=== PATIENT | male | born 1940 | race Caucasian/White ===

== ENCOUNTER 2017-10-18 11:36 | Inpatient (IN) | payer MEDICARE ==
[~2017-10-18] VITALS: Ht 175.3 cm; Wt 93.0 kg
[2017-10-18] MEDS ORDERED: HUMALOG100 UNIT/1 SC (12:08)
[2017-10-18] MEDS ORDERED: ATORVASTATIN CA10 MG PO (12:08)
[2017-10-18] MEDS ORDERED: METOPROLOL TART25 MG PO (12:08)
[2017-10-18] MEDS ORDERED: FAMOTIDINE20 MG PO (12:08)
[2017-10-18] MEDS ORDERED: DOXAZOSIN MESYLA2 MG PO (12:08)
[2017-10-18] MEDS ORDERED: ZOLOFT50 MG PO (12:08)
[2017-10-18] MEDS ORDERED: ASPIR 8181 MG PO (12:08)
[2017-10-18] MEDS: SODIUM CHLORIDE 0.9% 1000ML 1,000 ML IV SCH ×4 (12:29→23:32)
[2017-10-18] MEDS ORDERED: CEFTRIAXONE SOD 1 GM VIAL IM ONE (14:15)
[2017-10-18] MEDS ORDERED: ONDANSETRON HCL INJ 2 MG/ML VIAL IV STA (14:22)
[2017-10-18] MEDS ORDERED: ONDANSETRON HCL INJ 2 MG/ML VIAL IV PRN (15:45)
[2017-10-18] MEDS ORDERED: ASPIRIN 81 MG CHEW TAB PO ONE (15:45)
[2017-10-18 19:00] VITALS: BP 136/76
[2017-10-18 20:00] VITALS: BP 136/76
[2017-10-19] VITALS (9 sets, daily range): BP systolic 108–144; BP diastolic 58–72
[2017-10-19] MEDS ORDERED: PANTOPRAZOLE 40 MG 10ML VIAL IV STA (01:37)
[2017-10-19] MEDS: PANTOPRAZOLE INJ 40 MG in SODIUM CHLORIDE 0.9% 50ML 50 ML IV SCH ×2 (02:26→20:17)
[2017-10-19 04:38] LABS: ALBUMIN 2.8 g/dL (3.5-5.0); ANION GAP 14.2 mmol/L (8-16); CALCIUM 8.4 mg/dL (8.4-10.2); CREATININE, SERUM 1.57 mg/dL (0.72-1.25); POTASSIUM 4.2 mmol/L (3.5-5.1)
[2017-10-19 04:45] LABS: BASOPHILS % 0.3 % (0.0-1.0); EOSINOPHILS # (AUTO) 0.1 (0.0-0.4); EOSINOPHILS % 0.8 % (0.0-6.0); HEMATOCRIT 23.7 % (38.2-49.6); LYMPHOCYTES # (AUTO) 1.9 (1.0-3.2); LYMPHOCYTES % 17.4 % (18.0-39.1); MEAN CORPUSCULAR HEMOGLOBIN 28.9 pg (28-32); MEAN CORPUSCULAR HGB CONC 33.8 g/dL (31-35); MEAN CORPUSCULAR VOLUME 85.6 fL (81-99); MONOCYTES # (AUTO) 0.8 (0.2-0.8); MONOCYTES % 7.8 % (4.4-11.3); NEUTROPHILS # (AUTO) 7.8 (2.1-6.9); NEUTROPHILS % 73.1 % (38.7-80.0); PLATELET COUNT 187 x10e3/uL (140-360); RED BLOOD COUNT 2.77 x10e6/uL (4.3-5.7); RED CELL DISTRIBUTION WIDTH 14.2 % (11.7-14.4)
[2017-10-19] MEDS: SODIUM CHLORIDE 0.9% 1000ML 1,000 ML IV SCH ×4 (08:15→18:11)
[2017-10-19 08:20] LABS: INR 1.25; PROTHROMBIN TIME 14.8 seconds (11.9-14.5)
[2017-10-19 08:21] LABS: PARTIAL THROMBOPLASTIN TIME 33.7 seconds (23.8-35.5)
[2017-10-19] MEDS ORDERED: PROPOFOL IV EMULSION 10 MG/ML 50 ML VIAL ONE (14:56)
[2017-10-19] MEDS ORDERED: LIDOCAINE HCL 2% LOCAL INJ 5 ML SDV VIAL INJ ONE (14:56)
[2017-10-19] MEDS ORDERED: MIDAZOLAM HCL 2 MG/2 ML VIAL ONE (15:21)
[2017-10-19] MEDS ORDERED: FENTANYL CITRATE/PF 100MCG/2 ML INJ ONE (15:21)
[2017-10-19] MEDS ORDERED: SODIUM CHLORIDE 0.9% 500ML 500 ML ONE (15:35)
[2017-10-19] MEDS: INSULIN LISPRO 100 UNIT/1 ML 3ML VIAL SQ SCH (20:00)
--- NOTE | 2017-10-19 22:31 | Operative Report ---
DATE OF PROCEDURE: October 19, 2017 REFERRING PHYSICIAN: Dr. Antunez MEDICATION: Patient was done under MAC. Please see anesthesiologist's note. PROCEDURE: Patient in left lateral decubitus position. Flexible fiberoptic Olympus gastroscope was introduced into the esophagus under direct visualization without any difficulty. The distal esophageal mucosa was ulcerated. The tight ulcerated stricture noted at the GE junction could not initially traverse with scope, dilated to a size 46-[place]. The scope was then advanced with some resistance into the stomach. Mucosa overlying the antrum and the body revealed some patchy erythema, low-grade edema. Biopsies were obtained, sent to stain for H. pylori. The pylorus was of normal contour and shape. It was intubated with ease and the scope was advanced all the way to 2nd portion of the duodenum. The scope was then withdrawn slowly. Mucosa overlying the proximal 2nd portion and the duodenal bulb appeared to be within normal limits. The scope was then withdrawn back into the stomach and retroflexed. Mucosa overlying the fundus and the cardia grossly appeared to be within normal limits. The scope was then straightened out. The stomach was decompressed. Scope was subsequently withdrawn. Patient tolerated the procedure well. IMPRESSIONS 1. Ulcerated distal esophagus. 2. 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 3. Gastritis biopsied. Biopsies sent to stain for Helicobacter pylori. PLAN: Follow up histology. Continue PPI therapy. Initiate full liquid diet. Patient will need to have additional dilatation of the aforementioned esophageal stricture, which could be done electively on an outpatient basis. Job#: [id number] CQ cc:NEIL ANTUNEZ MD
[2017-10-20] VITALS (8 sets, daily range): BP systolic 108–129; BP diastolic 55–65
[2017-10-20] MEDS: PANTOPRAZOLE INJ 40 MG in SODIUM CHLORIDE 0.9% 50ML 50 ML IV SCH ×3 (01:02→22:31)
[2017-10-20] MEDS: SODIUM CHLORIDE 0.9% 1000ML 1,000 ML IV SCH ×2 (04:15→08:45)
[2017-10-20 05:50] LABS: BASOPHILS % 0.3 % (0.0-1.0); EOSINOPHILS # (AUTO) 0.3 (0.0-0.4); EOSINOPHILS % 4.1 % (0.0-6.0); HEMATOCRIT 20.1 % (38.2-49.6); LYMPHOCYTES # (AUTO) 1.2 (1.0-3.2); LYMPHOCYTES % 18.1 % (18.0-39.1); MEAN CORPUSCULAR HEMOGLOBIN 28.7 pg (28-32); MEAN CORPUSCULAR HGB CONC 32.8 g/dL (31-35); MEAN CORPUSCULAR VOLUME 87.4 fL (81-99); MONOCYTES # (AUTO) 0.5 (0.2-0.8); MONOCYTES % 7.7 % (4.4-11.3); NEUTROPHILS # (AUTO) 4.5 (2.1-6.9); NEUTROPHILS % 69.3 % (38.7-80.0); PLATELET COUNT 156 x10e3/uL (140-360); RED CELL DISTRIBUTION WIDTH 14.9 % (11.7-14.4)
[2017-10-20 05:52] LABS: HEMOGLOBIN 6.6 g/dL (14.0-18.0)
[2017-10-20 05:56] LABS: ANION GAP 12.6 mmol/L (8-16); CALCIUM 8.1 mg/dL (8.4-10.2); CREATININE, SERUM 1.26 mg/dL (0.72-1.25); POTASSIUM 3.6 mmol/L (3.5-5.1)
[2017-10-20] MEDS: INSULIN LISPRO 100 UNIT/1 ML 3ML VIAL SQ SCH ×3 (08:00→21:00)
[2017-10-20] MEDS: ASPIRIN 81 MG CHEW TAB PO SCH (08:42)
[2017-10-20] MEDS: DOXAZOSIN MESYLATE 2 MG TAB PO SCH (08:43)
[2017-10-20] MEDS: METOPROLOL TARTRATE 25 MG TAB PO SCH (08:44)
[2017-10-20] MEDS: ATORVASTATIN 10 MG TAB PO SCH (08:44)
[2017-10-20] MEDS: SERTRALINE HCL 50 MG TAB PO SCH (08:45)
[2017-10-20] MEDS: FAMOTIDINE 20 MG TAB PO SCH ×2 (08:45→16:00)
[2017-10-20] MEDS ORDERED: SODIUM CHLORIDE 0.9% 250ML 250 ML IV NR (09:30)
[2017-10-20] MEDS ORDERED: DEXTROSE 50% SYRINGE 50 ML IV PRN (13:45)
[2017-10-20] MEDS: FUROSEMIDE INJ 10 MG/ML 2 ML VIAL IV SCH ×2 (14:21→17:24)
[2017-10-20 19:36] LABS: BASOPHILS % 0.4 % (0.0-1.0); EOSINOPHILS # (AUTO) 0.3 (0.0-0.4); EOSINOPHILS % 3.8 % (0.0-6.0); HEMATOCRIT 24.6 % (38.2-49.6); HEMOGLOBIN 8.3 g/dL (14.0-18.0); LYMPHOCYTES # (AUTO) 1.5 (1.0-3.2); LYMPHOCYTES % 21.8 % (18.0-39.1); MEAN CORPUSCULAR HEMOGLOBIN 28.9 pg (28-32); MEAN CORPUSCULAR HGB CONC 33.7 g/dL (31-35); MEAN CORPUSCULAR VOLUME 85.7 fL (81-99); MONOCYTES # (AUTO) 0.6 (0.2-0.8); NEUTROPHILS # (AUTO) 4.5 (2.1-6.9); NEUTROPHILS % 65.4 % (38.7-80.0); PLATELET COUNT 152 x10e3/uL (140-360); RED BLOOD COUNT 2.87 x10e6/uL (4.3-5.7); RED CELL DISTRIBUTION WIDTH 14.3 % (11.7-14.4)
[2017-10-21 00:02] VITALS: BP 113/56
[2017-10-21] MEDS: PANTOPRAZOLE INJ 40 MG in SODIUM CHLORIDE 0.9% 50ML 50 ML IV SCH (03:44)
[2017-10-21 04:58] VITALS: BP 132/64
[2017-10-21 07:42] VITALS: BP 144/67
[2017-10-21 09:30] VITALS: BP 144/67
[2017-10-21] MEDS: ASPIRIN 81 MG CHEW TAB PO SCH (09:30)
[2017-10-21] MEDS: DOXAZOSIN MESYLATE 2 MG TAB PO SCH (09:30)
[2017-10-21] MEDS: INSULIN LISPRO 100 UNIT/1 ML 3ML VIAL SQ SCH ×3 (09:30→16:30)
[2017-10-21] MEDS: FAMOTIDINE 20 MG TAB PO SCH ×2 (09:30→16:30)
[2017-10-21] MEDS: SERTRALINE HCL 50 MG TAB PO SCH (09:30)
[2017-10-21] MEDS: METOPROLOL TARTRATE 25 MG TAB PO SCH (09:30)
[2017-10-21] MEDS: ATORVASTATIN 10 MG TAB PO SCH (09:30)
[2017-10-21 12:44] VITALS: BP 123/61
--- NOTE | 2017-10-21 17:18 | Discharge Summary ---
HISTORY OF PRESENT ILLNESS: [id number] male with past medical history positive for coronary artery disease, hypertension, diabetes mellitus, history of alcohol abuse who came here because of feeling weak. He was found to have melanotic stools, very low hemoglobin. He underwent an upper endoscopy done by Dr. Tim Marin who found an ulcerated distal esophagus and ulcerated tight stricture in the gastroesophageal junction, which was dilated, gastritis. Patient is doing much, much better now. Patient is going home today. PHYSICAL EXAM: VITAL SIGNS: Blood pressure 123/61, temperature 96.1, heart rate 57 per minute, respiratory rate 18 per minute, oxygen saturation 99%. HEART: Regular rhythm. No murmur. No extra sounds. LUNGS: Clear bilaterally. ABDOMEN: Soft. EXTREMITIES: Show no evidence of cyanosis, edema or trauma. On the BMP sodium 141, potassium 3.6, chloride 113. CO2 19, BUN 41, creatinine 1.26, glucose 135. On the CBC, white blood count 6.49, hemoglobin 8.3 hematocrit 24.6, platelet 152,000. PT 14.8. INR 1.25, PTT 33.7, AST 9, ALT 9, total bilirubin 0.5, alkaline phosphatase 56. FINAL IMPRESSION: 1. Gastric bleed secondary to ulcerated distal esophagus. 2. Gastritis. 3. Acute anemia secondary to upper gastrointestinal bleeding. 4. Acute renal insufficiency. 5. 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 6. Hypertension. 7. Coronary artery disease status post coronary artery bypass graft. 8. Hyperlipidemia. 9. Depression. PLAN OF TREATMENT: Continue Protonix 40 mg twice a day. We are going to discontinue the aspirin and hold it for at least a couple of months. Continue metoprolol 25 mg daily. Continue Lipitor 10 mg daily. Zoloft 100 mg daily. 4 mg daily. Follow up with me in a week and follow up with Dr. Tim Marin, director of agronomy, in two weeks NEIL MATIAS MD Job#: [id number]
== END 2017-10-21 17:00 | disposition home or self-care (01) | DRG 381 ==
LOC: FSED 11:36 → ERHOLD 15:32 → MED/SURG 19:00
PROVIDERS: ADMIT Internal Medicine; ATTEND Internal Medicine
PROC: 0DB78ZX Excision of Stomach, Pylorus, Via Natural or Artificial Opening Endoscopic, Diagnostic (ICD-10-PCS; 2017-10-19)
PROC: 0D758ZZ Dilation of Esophagus, Via Natural or Artificial Opening Endoscopic (ICD-10-PCS; principal; 2017-10-19 16:34)
PROC: 0DB68ZX Excision of Stomach, Via Natural or Artificial Opening Endoscopic, Diagnostic (ICD-10-PCS; 2017-10-19 16:34)
PROC: 30233N1 Transfusion of Nonautologous Red Blood Cells into Peripheral Vein, Percutaneous Approach (ICD-10-PCS; 2017-10-20)
DX: K22.11 Ulcer of esophagus with bleeding (principal); D62 Acute posthemorrhagic anemia; K22.2 Esophageal obstruction; I25.10 Atherosclerotic heart disease of native coronary artery without angina pectoris; Z95.1 Presence of aortocoronary bypass graft; F10.11 Alcohol abuse, in remission; F32.9 Major depressive disorder, single episode, unspecified; E78.5 Hyperlipidemia, unspecified; N28.9 Disorder of kidney and ureter, unspecified; E11.22 Type 2 diabetes mellitus with diabetic chronic kidney disease; I12.9 Hypertensive chronic kidney disease with stage 1 through stage 4 chronic kidney disease, or unspecified chronic kidney disease; N18.9 Chronic kidney disease, unspecified; Z79.4 Long term (current) use of insulin; K29.70 Gastritis, unspecified, without bleeding
CPT/HCPCS: 36415; 43239; 43450; 80048; 80053; 80307; 81003; 82550; 82553; 82948; 84484; 85025; 85610; 85730; 86850; 86900; 86920; 88305; 88312; 93005; 96372; 96374; 99284; J0696; J1940; J2001; J2250; J2405; J7030; J7040; J7050; P9016

== ENCOUNTER → 2018-01-01 | Day surgery (SDC) | payer MEDICARE, OTHER ==
[2017-12-30 12:30] LABS: BASOPHILS # (AUTO) 0.1 (0.0-0.1); BASOPHILS % 0.7 % (0.0-1.0); EOSINOPHILS # (AUTO) 0.3 (0.0-0.4); EOSINOPHILS % 3.3 % (0.0-6.0); HEMATOCRIT 35.1 % (38.2-49.6); HEMOGLOBIN 10.6 g/dL (14.0-18.0); LYMPHOCYTES # (AUTO) 2.5 (1.0-3.2); LYMPHOCYTES % 25.9 % (18.0-39.1); MEAN CORPUSCULAR HEMOGLOBIN 23.3 pg (28-32); MEAN CORPUSCULAR HGB CONC 30.2 g/dL (31-35); MEAN CORPUSCULAR VOLUME 77.1 fL (81-99); MONOCYTES # (AUTO) 0.9 (0.2-0.8); MONOCYTES % 9.4 % (4.4-11.3); NEUTROPHILS # (AUTO) 5.9 (2.1-6.9); NEUTROPHILS % 60.4 % (38.7-80.0); PLATELET COUNT 345 x10e3/uL (140-360); RED BLOOD COUNT 4.55 x10e6/uL (4.3-5.7); RED CELL DISTRIBUTION WIDTH 16.6 % (11.7-14.4)
[~2018-01-01] MED LIST: ASPIR 8181 MG PO; ATORVASTATIN CA10 MG PO; DOXAZOSIN MESYLA2 MG PO; EPHEDRINE SULFATE INJ 50 MG/10 ML SYR ONE; ESMOLOL HCL 100MG/10ML 10 MG/ML VIAL ONE; FAMOTIDINE20 MG PO; FENTANYL CITRATE/PF 100MCG/2 ML INJ ONE; HUMALOG100 UNIT/1; HUMALOG100 UNIT/1 SC; METOPROLOL TART25 MG PO; PANTOPRAZOLE SO20 MG PO; PANTOPRAZOLE SO40 MG PO; PHENYLEPHRINE HCL 1% 10 MG/ML VIAL ONE; PROPOFOL IV EMULSION 10 MG/ML 50 ML VIAL ONE; SERTRALINE; ZOLOFT50 MG PO
[2018-01-01 16:00] VITALS: BP 127/94
--- NOTE | 2018-01-01 16:23 | Operative Report ---
DATE OF PROCEDURE: January 01, 2018 REFERRING PHYSICIAN: Dr. Neil Matias. PROCEDURES PERFORMED: Esophagogastroduodenoscopy with esophageal dilatation and biopsies and colonoscopy with polypectomy. INDICATIONS FOR ESOPHAGOGASTRODUODENOSCOPY: Dysphagia to solids. INDICATIONS FOR COLONOSCOPY: Colorectal cancer screening. MEDICATION: Patient was done under MAC. Please see anesthesiologist's note. PROCEDURE: With the patient in the left lateral decubitus position, flexible fiberoptic Olympus gastroscope was introduced into the esophagus under direct visualization without any difficulty. There was a tight stricture noted at the GE junction that could not be traversed with the scope. That stricture was dilated over a wire to size 16 [place]. The scope was advanced into the stomach traversing the stricture as well as a large hiatal hernia. Mucosa overlying the antrum and the body revealed some patchy erythema and mild to moderate edema and biopsies were obtained and sent to stain for H. pylori. Pylorus appeared to be of normal contour and shape. It was intubated with ease and the scope was advanced all the way to the 2nd portion of the duodenum. The scope was then withdrawn slowly. Mucosa overlying the proximal 2nd portion and the duodenal bulb appeared to be within normal limits. The scope was then withdrawn back into the stomach and retroflexed and the previously described hiatal hernia was also noted in the retroflexed position. The fundus grossly appeared to be within normal limits. The scope was then straightened out. It was subsequently withdrawn. Patient tolerated the procedure well. IMPRESSION: 1. Distal esophagitis. 2. Esophageal stricture at gastroesophageal junction, tight, could not be traversed with the scope, dilated to size 16 [place] over a wire. 3. Approximately 5 cm hiatal hernia. 4. Gastritis biopsied. Biopsy sent to stain for H. pylori. PLAN: Follow up histology. Continue Protonix 40 mg 1 p.o. a.c. b.i.d. PROCEDURE: Patient was then turned around and after adequate lubrication of the anal canal a flexible fiberoptic Olympus colonoscope was inserted into the rectum with ease and advanced all the way to the cecum. Prep was suboptimal to poor with moderate to large amount of retained fecal material in the colon. One polyp was snared from the cecum and one polyp was snared from the ascending colon. Whatever was visualized of the mucosa overlying the rest of the ascending, transverse, descending, sigmoid and rectum grossly appeared to be within normal limits other than for salas diverticular disease. The scope was then retroflexed into the distal rectum and the area around the dentate line was only partially visualized due to the presence of retained fecal material in the colon. Scope was then straightened out. It was subsequently withdrawn. Patient tolerated the procedure well. IMPRESSION 1. Suboptimal to poor prep. 2. Salas diverticulosis. 3. Cecal polyps, snared. 4. Ascending colon polyp, snared. PLAN: Follow up histology. The patient will need a repeat colonoscopy after a better prep. Job#: [id number] cc:NEIL MATIAS MD
== END | disposition home or self-care (01) ==
LOC: OR 11:48
PROVIDERS: ATTEND Internal Medicine Gastroenterology
DX: Z12.11 Encounter for screening for malignant neoplasm of colon (principal); D12.0 Benign neoplasm of cecum; D12.2 Benign neoplasm of ascending colon; K29.50 Unspecified chronic gastritis without bleeding; K22.2 Esophageal obstruction; K20.9 Esophagitis, unspecified; K44.9 Diaphragmatic hernia without obstruction or gangrene; K21.9 Gastro-esophageal reflux disease without esophagitis; K57.30 Diverticulosis of large intestine without perforation or abscess without bleeding; K59.00 Constipation, unspecified; I25.810 Atherosclerosis of coronary artery bypass graft(s) without angina pectoris; E11.9 Type 2 diabetes mellitus without complications; I10 Essential (primary) hypertension; Z01.812 Encounter for preprocedural laboratory examination; Z79.4 Long term (current) use of insulin; Z95.1 Presence of aortocoronary bypass graft
CPT/HCPCS: 36415 ×2; 43239; 43248; 45385; 82948; 85025; J2370; 43450; 45378

== ENCOUNTER 2019-04-16 16:50 | Emergency (ER) | payer MEDICARE ==
[~2019-04-16] VITALS: Ht 175.3 cm; Wt 93.0 kg
[~2019-04-16 16:50] MED LIST changes: -EPHEDRINE SULFATE INJ 50 MG/10 ML SYR ONE; -ESMOLOL HCL 100MG/10ML 10 MG/ML VIAL ONE; -FENTANYL CITRATE/PF 100MCG/2 ML INJ ONE; -PHENYLEPHRINE HCL 1% 10 MG/ML VIAL ONE; -PROPOFOL IV EMULSION 10 MG/ML 50 ML VIAL ONE
[2019-04-16 17:31] VITALS: BP 162/84
--- NOTE | 2019-04-16 17:37 | Diagnostic Imaging Report ---
EXAMINATION: FOREARM LEFT 2 VIEW INDICATION: Trauma COMPARISON: None FINDINGS: No acute fracture or dislocation. Alignment is anatomic. The soft tissues appear unremarkable. Arterial atherosclerotic calcifications. IMPRESSION: No acute osseous injury. Signed by: Cooper Lui MD on 04/16/2019 5:34 PM
--- NOTE | 2019-04-16 17:40 | Diagnostic Imaging Report ---
EXAMINATION: CHEST 2 VIEWS INDICATION: Trauma COMPARISON: None FINDINGS: LINES/TUBES:EKG leads overlie the chest. LUNGS:The lungs are moderately inflated. No focal consolidation or pulmonary edema. PLEURA:No pleural effusion or pneumothorax. MEDIASTINUM:The cardiomediastinal silhouette appears normal in size and shape. Atherosclerotic calcifications of the thoracic aorta. Postoperative findings of prior CABG. BONES/SOFT TISSUES:No acute osseous injury. ABDOMEN:No free air under the diaphragm. IMPRESSION: No focal pneumonia or pulmonary edema. No radiographic evidence of acute traumatic injury to the thorax. Signed by: Cooper Lui MD on 04/16/2019 5:37 PM
--- NOTE | 2019-04-16 18:41 | Diagnostic Imaging Report ---
History:Fall Comparison studies: None Technique: Axial images were obtained from the skull base to the vertex. Coronal and sagittal images reconstructed from the axial data. Dose modulation, iterative reconstruction, and/or weight based adjustment of the mA/kV was utilized to reduce the radiation dose to as low as reasonably achievable. Intravenous contrast: None Findings: Scalp/skull: No abnormalities. Extra-axial spaces: No masses. No fluid collections. Brain sulci: Moderately prominent. Ventricles: Moderate compensatory dilatation. No acute hydrocephalus. Parenchyma: Subtle hypodensities in the supratentorial white matter are small vessel ischemic changes. No masses, hemorrhage, acute or chronic cortical vascular insults. Sellar/suprasellar region: No abnormalities. Craniocervical junction: Patent foramen magnum. No Chiari one malformation. Incidental findings: Atherosclerotic calcifications in the carotid siphons and vertebral arteries. Impression: No acute abnormalities. Chronic findings: 1. Moderate generalized volume loss. 2. Mild supratentorial white matter small vessel ischemic changes. Signed by: Dr. Josemanuel Brambila M.D. on 04/16/2019 6:38 PM
--- NOTE | 2019-04-16 18:47 | Diagnostic Imaging Report ---
History: Fall Comparison studies: None Technique: Axial images were obtained through the cervical region.. Coronal and sagittal images reconstructed from the axial data. Dose modulation, iterative reconstruction, and/or weight based adjustment of the mA/kV was utilized to reduce the radiation dose to as low as reasonably achievable. Intravenous contrast: None Findings: Fractures: None. Soft tissues: No gross abnormalities. Atlantoaxial articulation: Mildly degenerated. Alignment: Normal lordosis. No scoliosis. Cervicomedullary junction: No abnormalities. The foramen magnum is patent. Vertebrae: No infection or neoplasm. Degenerative changes: Mildly degenerated disks at C5-6 and C6-7. IMPRESSION: 1. No acute abnormalities. Specifically, no fractures. 2. Cannot adequately evaluate for ligament, spinal cord and or vascular abnormalities. 3. Degenerative changes as described Signed by: Dr. Josemanuel Brambila M.D. on 04/16/2019 6:44 PM
== END 2019-04-16 19:30 | disposition home or self-care (01) ==
LOC: ER 17:24
DX: S00.83XA Contusion of other part of head, initial encounter (principal); S50.12XA Contusion of left forearm, initial encounter; W11.XXXA Fall on and from ladder, initial encounter; Y92.009 Unspecified place in unspecified non-institutional (private) residence as the place of occurrence of the external cause; I10 Essential (primary) hypertension; E11.9 Type 2 diabetes mellitus without complications; I25.10 Atherosclerotic heart disease of native coronary artery without angina pectoris; Z95.1 Presence of aortocoronary bypass graft; F32.9 Major depressive disorder, single episode, unspecified; Z87.891 Personal history of nicotine dependence; Z94.0 Kidney transplant status; Z79.4 Long term (current) use of insulin
CPT/HCPCS: 70450; 71046; 72125; 99283

== ENCOUNTER 2021-10-03 12:20 | Emergency (ER) | payer MEDICARE ==
[~2021-10-03] VITALS: Ht 175.3 cm; Wt 93.0 kg
== END 2021-10-03 13:40 | disposition home or self-care (01) ==
LOC: ER 12:24
DX: I10 Essential (primary) hypertension (principal); E11.9 Type 2 diabetes mellitus without complications; F32.A Depression, unspecified; Z95.1 Presence of aortocoronary bypass graft
CPT/HCPCS: 99282

== ENCOUNTER 2022-01-26 12:00 | Inpatient (IN) | payer MEDICARE ==
[~2022-01-26] VITALS: Ht 175.3 cm; Wt 93.0 kg
[2022-01-26 12:37] LABS: BASOPHILS % 0.2 % (0.0-1.0); HEMATOCRIT 48.7 % (38.2-49.6); HEMOGLOBIN 15.1 g/dL (14.0-18.0); LYMPHOCYTES # (AUTO) 0.7 (1.0-3.2); LYMPHOCYTES % 11.4 % (18.0-39.1); MEAN CORPUSCULAR HEMOGLOBIN 26.7 pg (28-32); MONOCYTES # (AUTO) 0.5 (0.2-0.8); MONOCYTES % 8.7 % (4.4-11.3); NEUTROPHILS # (AUTO) 4.5 (2.1-6.9); NEUTROPHILS % 79.4 % (38.7-80.0); PLATELET COUNT 211 x10e3/uL (140-360); RED BLOOD COUNT 5.66 x10e6/uL (4.3-5.7); RED CELL DISTRIBUTION WIDTH 15.7 % (11.7-14.4)
[2022-01-26 12:59] LABS: INR 1.05; PROTHROMBIN TIME 14.7 seconds (11.9-14.5)
[2022-01-26 13:00] LABS: ALBUMIN 3.2 g/dL (3.5-5.0); ALBUMIN/GLOBULIN RATIO 0.8 (0.8-2.0); ANION GAP 19.9 mmol/L (8-16); CALCIUM 8.3 mg/dL (8.4-10.2); CREATININE, SERUM 1.3 mg/dL (0.72-1.25); POTASSIUM 3.9 mmol/L (3.5-5.1)
[2022-01-26 13:11] LABS: CREATINE KINASE 618 IU/L (30-200)
[2022-01-26 13:12] LABS: SALICYLATE < 5.0 mg/dL (0-30)
[2022-01-26 13:13] LABS: CLARITY,URINE TURBID (CLEAR); COLOR,URINE YELLOW (YELLOW); LEUKOCYTE ESTERASE ,URINE LARGE (NEGATIVE); NITRITE,URINE NEGATIVE (NEGATIVE); PROTEIN,URINE DIPSTICK >=300 (NEGATIVE)
[2022-01-26 13:14] LABS: AMPHETAMINES SCREEN,URINE NEGATIVE (NEGATIVE); BENZODIAZEPINES SCREEN,URINE NEGATIVE (NEGATIVE); KETONES,URINE 1+ (NEGATIVE); PHENCYCLIDINE SCREEN,URINE NEGATIVE (NEGATIVE); URINE UROBILINOGEN 0.2 mg/dL (0.2 - 1)
[2022-01-26 13:18] LABS: BACTERIA,URINE MANY /HPF; EPITHELIAL CELLS,URINE FEW /LPF; RBC,URINE >50 /HPF (0-5); WBC,URINE (MAN) >50 /HPF (0-5)
[2022-01-26] MEDS ORDERED: SODIUM CHLORIDE 0.9% 1000ML 1,000 ML IV SCH ×2 (13:30)
[2022-01-26] MEDS: SODIUM CHLORIDE 0.9% 1000ML 1,000 ML IV SCH (14:00)
[2022-01-27] VITALS (9 sets, daily range): BP systolic 113–176; BP diastolic 63–84
[2022-01-27] MEDS: SODIUM CHLORIDE 0.9% 1000ML 1,000 ML IV SCH ×3 (02:19→13:36)
[2022-01-27 08:33] LABS: BASOPHILS % 0.3 % (0.0-1.0); EOSINOPHILS % 0.3 % (0.0-6.0); HEMATOCRIT 42.2 % (38.2-49.6); HEMOGLOBIN 12.8 g/dL (14.0-18.0); LYMPHOCYTES # (AUTO) 0.5 (1.0-3.2); LYMPHOCYTES % 13.4 % (18.0-39.1); MEAN CORPUSCULAR HEMOGLOBIN 26.4 pg (28-32); MEAN CORPUSCULAR HGB CONC 30.3 g/dL (31-35); MONOCYTES # (AUTO) 0.4 (0.2-0.8); MONOCYTES % 10.1 % (4.4-11.3); NEUTROPHILS % 75.6 % (38.7-80.0); PLATELET COUNT 158 x10e3/uL (140-360); RED BLOOD COUNT 4.85 x10e6/uL (4.3-5.7); RED CELL DISTRIBUTION WIDTH 15.9 % (11.7-14.4)
[2022-01-27 09:00] LABS: ANION GAP 18.7 mmol/L (8-16); CALCIUM 8.5 mg/dL (8.4-10.2); CREATININE, SERUM 1.13 mg/dL (0.72-1.25); POTASSIUM 3.7 mmol/L (3.5-5.1)
[2022-01-27] MEDS ORDERED: DEXTROSE 50% SYRINGE 50 ML IV PRN (11:15)
[2022-01-27] MEDS: INSULIN LISPRO 100 UNIT/1 ML 3ML VIAL SQ SCH ×4 (11:30→21:00)
[2022-01-27] MEDS: METOPROLOL TARTRATE 25 MG TAB PO SCH (17:00)
[2022-01-27] MEDS: ATORVASTATIN 10 MG TAB PO SCH (21:38)
[2022-01-28] VITALS (9 sets, daily range): BP systolic 130–183; BP diastolic 52–83
[2022-01-28] MEDS: SODIUM CHLORIDE 0.9% 1000ML 1,000 ML IV SCH ×2 (03:32→21:03)
[2022-01-28] MEDS ORDERED: PANTOPRAZOLE SOD 40 MG TABEC PO SCH (06:00)
[2022-01-28 06:28] LABS: BASOPHILS % 0.3 % (0.0-1.0); EOSINOPHILS % 0.8 % (0.0-6.0); HEMATOCRIT 41.3 % (38.2-49.6); HEMOGLOBIN 12.3 g/dL (14.0-18.0); LYMPHOCYTES # (AUTO) 0.6 (1.0-3.2); LYMPHOCYTES % 14.7 % (18.0-39.1); MEAN CORPUSCULAR HEMOGLOBIN 26.2 pg (28-32); MEAN CORPUSCULAR HGB CONC 29.8 g/dL (31-35); MEAN CORPUSCULAR VOLUME 88.1 fL (81-99); MONOCYTES # (AUTO) 0.3 (0.2-0.8); MONOCYTES % 7.8 % (4.4-11.3); NEUTROPHILS # (AUTO) 2.9 (2.1-6.9); NEUTROPHILS % 75.9 % (38.7-80.0); PLATELET COUNT 135 x10e3/uL (140-360); RED BLOOD COUNT 4.69 x10e6/uL (4.3-5.7); RED CELL DISTRIBUTION WIDTH 15.9 % (11.7-14.4)
[2022-01-28 06:55] LABS: ANION GAP 19.2 mmol/L (8-16); CALCIUM 8.3 mg/dL (8.4-10.2); CREATININE, SERUM 0.87 mg/dL (0.72-1.25); POTASSIUM 3.2 mmol/L (3.5-5.1)
[2022-01-28] MEDS: INSULIN LISPRO 100 UNIT/1 ML 3ML VIAL SQ SCH ×4 (07:30→21:00)
[2022-01-28] MEDS: DOXAZOSIN MESYLATE 2 MG TAB PO SCH (09:00)
[2022-01-28] MEDS: PANTOPRAZOLE SOD 40 MG TABEC PO SCH (10:47)
[2022-01-28] MEDS: ASPIRIN 325 MG TAB PO SCH (10:47)
[2022-01-28] MEDS: METOPROLOL TARTRATE 25 MG TAB PO SCH ×2 (10:48→17:26)
[2022-01-28] MEDS ORDERED: THIAMINE HCL INJ 100 MG/ML 2ML VIAL IV ONE (11:45)
[2022-01-28] MEDS: ATORVASTATIN 10 MG TAB PO SCH (21:02)
[2022-01-29] VITALS (8 sets, daily range): BP systolic 154–184; BP diastolic 58–71
[2022-01-29] MEDS: SODIUM CHLORIDE 0.9% 1000ML 1,000 ML IV SCH ×3 (05:44→21:15)
[2022-01-29] MEDS: INSULIN LISPRO 100 UNIT/1 ML 3ML VIAL SQ SCH ×4 (07:30→21:00)
[2022-01-29] MEDS: PANTOPRAZOLE SOD 40 MG TABEC PO SCH (08:46)
[2022-01-29] MEDS: ASPIRIN 325 MG TAB PO SCH (08:46)
[2022-01-29] MEDS: METOPROLOL TARTRATE 25 MG TAB PO SCH ×2 (08:48→15:17)
[2022-01-29] MEDS: DOXAZOSIN MESYLATE 2 MG TAB PO SCH (08:48)
[2022-01-29] MEDS ORDERED: THIAMINE HCL INJ 100 MG/ML 2ML VIAL IV SCH ×2 (09:00)
[2022-01-29 10:06] LABS: CHOL/HDL RATIO 4.7 (3.9-4.7)
[2022-01-29 10:25] LABS: THYROID STIMULATING HORMONE 1.057 uIU/mL (0.350-4.940)
[2022-01-29] MEDS ORDERED: BACITRACIN 50,000 UNIT VIAL IM ONE (16:30)
[2022-01-29] MEDS ORDERED: BACITRACIN ZINC 15 GM OINT TOP PRN (16:45)
[2022-01-29] MEDS: BACITRACIN ZINC 15 GM OINT TOP SCH (19:20)
[2022-01-29] MEDS: ATORVASTATIN 10 MG TAB PO SCH (21:46)
[2022-01-30] VITALS (9 sets, daily range): BP systolic 150–189; BP diastolic 67–77
[2022-01-30] MEDS: SODIUM CHLORIDE 0.9% 1000ML 1,000 ML IV SCH ×3 (03:17→21:40)
[2022-01-30] MEDS: INSULIN LISPRO 100 UNIT/1 ML 3ML VIAL SQ SCH ×4 (07:30→20:02)
[2022-01-30] MEDS: ASPIRIN 325 MG TAB PO SCH (09:08)
[2022-01-30] MEDS: METOPROLOL TARTRATE 25 MG TAB PO SCH ×2 (09:09→16:54)
[2022-01-30] MEDS: BACITRACIN ZINC 15 GM OINT TOP SCH (09:10)
[2022-01-30] MEDS: DOXAZOSIN MESYLATE 2 MG TAB PO SCH (09:10)
[2022-01-30] MEDS: PANTOPRAZOLE SOD 40 MG TABEC PO SCH (09:10)
[2022-01-30] MEDS: AMLODIPINE BESYLATE 10 MG TAB PO SCH (11:09)
[2022-01-30] MEDS: HYDRALAZINE HCL 20 MG/ML VIAL IV PRN (11:09)
[2022-01-30] MEDS: ATORVASTATIN 10 MG TAB PO SCH (20:58)
[2022-01-30] MEDS ORDERED: ENOXAPARIN SOD INJ 40 MG/0.4 ML SYR SC SCH (21:00)
[2022-01-31] VITALS: BP 176/68
[2022-01-31] MEDS: HYDRALAZINE HCL 20 MG/ML VIAL IV PRN (00:56)
[2022-01-31 04:00] VITALS: BP 155/79
[2022-01-31] MEDS: SODIUM CHLORIDE 0.9% 1000ML 1,000 ML IV SCH ×3 (05:36→22:44)
[2022-01-31 06:16] LABS: BASOPHILS % 0.2 % (0.0-1.0); EOSINOPHILS # (AUTO) 0.1 (0.0-0.4); EOSINOPHILS % 1.8 % (0.0-6.0); HEMATOCRIT 38.7 % (38.2-49.6); HEMOGLOBIN 12.1 g/dL (14.0-18.0); LYMPHOCYTES # (AUTO) 0.7 (1.0-3.2); MEAN CORPUSCULAR HEMOGLOBIN 26.3 pg (28-32); MEAN CORPUSCULAR HGB CONC 31.3 g/dL (31-35); MEAN CORPUSCULAR VOLUME 84.1 fL (81-99); MONOCYTES # (AUTO) 0.4 (0.2-0.8); MONOCYTES % 7.2 % (4.4-11.3); NEUTROPHILS # (AUTO) 4.5 (2.1-6.9); NEUTROPHILS % 78.4 % (38.7-80.0); PLATELET COUNT 163 x10e3/uL (140-360); RED CELL DISTRIBUTION WIDTH 14.9 % (11.7-14.4)
[2022-01-31 06:24] LABS: ALBUMIN 2.8 g/dL (3.5-5.0); ALBUMIN/GLOBULIN RATIO 0.9 (0.8-2.0); ANION GAP 19.8 mmol/L (8-16); CALCIUM 7.8 mg/dL (8.4-10.2); CREATININE, SERUM 0.78 mg/dL (0.72-1.25); POTASSIUM 2.8 mmol/L (3.5-5.1)
[2022-01-31] MEDS: INSULIN LISPRO 100 UNIT/1 ML 3ML VIAL SQ SCH ×4 (07:30→21:00)
[2022-01-31] MEDS: METOPROLOL TARTRATE 25 MG TAB PO SCH ×2 (09:00→17:00)
[2022-01-31] MEDS: ASPIRIN 325 MG TAB PO SCH (09:00)
[2022-01-31] MEDS: PANTOPRAZOLE SOD 40 MG TABEC PO SCH (09:00)
[2022-01-31] MEDS: DOXAZOSIN MESYLATE 2 MG TAB PO SCH (09:00)
[2022-01-31 09:09] VITALS: BP 155/79
[2022-01-31] MEDS: ENOXAPARIN SOD INJ 40 MG/0.4 ML SYR SC SCH (09:31)
[2022-01-31] MEDS: BACITRACIN ZINC 15 GM OINT TOP SCH (10:51)
[2022-01-31 12:00] VITALS: BP 148/66
[2022-01-31] MEDS: POTASSIUM CHLORIDE 20MEQ/100ML 100 ML IV SCH ×2 (17:27→22:43)
[2022-01-31 20:00] VITALS: BP_SYST 135; BP_SYST 140; BP_DIAS 64; BP_DIAS 68
[2022-01-31] MEDS: ATORVASTATIN 10 MG TAB PO SCH (21:00)
[2022-02-01] VITALS (8 sets, daily range): BP systolic 132–179; BP diastolic 61–81
[2022-02-01] MEDS: DOXAZOSIN MESYLATE 2 MG TAB PO SCH (08:09)
[2022-02-01] MEDS: METOPROLOL TARTRATE 25 MG TAB PO SCH ×2 (08:10→17:20)
[2022-02-01] MEDS: ENOXAPARIN SOD INJ 40 MG/0.4 ML SYR SC SCH (08:10)
[2022-02-01] MEDS: ASPIRIN 325 MG TAB PO SCH (08:10)
[2022-02-01] MEDS: PANTOPRAZOLE SOD 40 MG TABEC PO SCH (08:10)
[2022-02-01] MEDS: AMLODIPINE BESYLATE 10 MG TAB PO SCH (08:10)
[2022-02-01] MEDS: INSULIN LISPRO 100 UNIT/1 ML 3ML VIAL SQ SCH ×4 (08:30→21:00)
[2022-02-01] MEDS: BACITRACIN ZINC 15 GM OINT TOP SCH (09:28)
[2022-02-01] MEDS: SODIUM CHLORIDE 0.9% 1000ML 1,000 ML IV SCH ×3 (09:48→21:47)
[2022-02-01 11:51] LABS: ANION GAP 18.3 mmol/L (8-16); CREATININE, SERUM 0.93 mg/dL (0.72-1.25); POTASSIUM 3.3 mmol/L (3.5-5.1)
[2022-02-01] MEDS: ATORVASTATIN 10 MG TAB PO SCH (21:00)
[2022-02-02] VITALS (9 sets, daily range): BP systolic 132–169; BP diastolic 62–76
[2022-02-02] MEDS: SODIUM CHLORIDE 0.9% 1000ML 1,000 ML IV SCH (04:45)
[2022-02-02] MEDS: INSULIN LISPRO 100 UNIT/1 ML 3ML VIAL SQ SCH ×4 (07:30→21:00)
[2022-02-02] MEDS: ASPIRIN 325 MG TAB PO SCH (08:29)
[2022-02-02] MEDS: AMLODIPINE BESYLATE 10 MG TAB PO SCH (08:29)
[2022-02-02] MEDS: METOPROLOL TARTRATE 25 MG TAB PO SCH ×2 (08:29→16:21)
[2022-02-02] MEDS ORDERED: DEXTROSE 5%/0.9% SOD CHL 1,000 ML IV SCH (08:30)
[2022-02-02] MEDS: DOXAZOSIN MESYLATE 2 MG TAB PO SCH (08:30)
[2022-02-02] MEDS: RIVASTIGMINE PATCH 4.6MG/24 HOURS PATCH TD SCH (08:31)
[2022-02-02] MEDS: ENOXAPARIN SOD INJ 40 MG/0.4 ML SYR SC SCH (08:31)
[2022-02-02] MEDS: PANTOPRAZOLE SOD 40 MG TABEC PO SCH (08:31)
[2022-02-02] MEDS: BACITRACIN ZINC 15 GM OINT TOP SCH (08:32)
[2022-02-02 08:48] LABS: BASOPHILS % 0.3 % (0.0-1.0); EOSINOPHILS # (AUTO) 0.1 (0.0-0.4); EOSINOPHILS % 0.8 % (0.0-6.0); HEMOGLOBIN 12.6 g/dL (14.0-18.0); LYMPHOCYTES # (AUTO) 0.8 (1.0-3.2); LYMPHOCYTES % 7.2 % (18.0-39.1); MEAN CORPUSCULAR HEMOGLOBIN 26.6 pg (28-32); MEAN CORPUSCULAR HGB CONC 33.2 g/dL (31-35); MEAN CORPUSCULAR VOLUME 80.2 fL (81-99); MONOCYTES # (AUTO) 0.8 (0.2-0.8); MONOCYTES % 7.3 % (4.4-11.3); NEUTROPHILS # (AUTO) 8.9 (2.1-6.9); NEUTROPHILS % 83.2 % (38.7-80.0); PLATELET COUNT 230 x10e3/uL (140-360); RED BLOOD COUNT 4.74 x10e6/uL (4.3-5.7); RED CELL DISTRIBUTION WIDTH 15.8 % (11.7-14.4)
[2022-02-02] MEDS ORDERED: POTASSIUM CHLORIDE 20 MEQ TAB CR PO ONE (09:00)
[2022-02-02 09:09] LABS: ANION GAP 20.2 mmol/L (8-16); CALCIUM 8.4 mg/dL (8.4-10.2); CREATININE, SERUM 0.81 mg/dL (0.72-1.25); POTASSIUM 3.2 mmol/L (3.5-5.1)
[2022-02-02] MEDS: SODIUM BICARBONATE 8.4% 50 ML in DEXTROSE 5% 1,000 ML IV SCH (11:08)
[2022-02-02] MEDS: ATORVASTATIN 10 MG TAB PO SCH (21:02)
[2022-02-03] MEDS ORDERED: POTASSIUM CHLORIDE 20MEQ/100ML 200 ML IV ONE ×4 (02:00→22:00)
[2022-02-03] MEDS: SODIUM BICARBONATE 8.4% 50 ML in DEXTROSE 5% 1,000 ML IV SCH ×2 (02:37→15:44)
[2022-02-03 04:00] VITALS: BP 136/69
[2022-02-03] MEDS: INSULIN LISPRO 100 UNIT/1 ML 3ML VIAL SQ SCH ×4 (07:30→20:27)
[2022-02-03 08:09] VITALS: BP 168/72
[2022-02-03 08:23] VITALS: BP 168/72
[2022-02-03] MEDS: RIVASTIGMINE PATCH 4.6MG/24 HOURS PATCH TD SCH (09:16)
[2022-02-03] MEDS: ENOXAPARIN SOD INJ 40 MG/0.4 ML SYR SC SCH (09:16)
[2022-02-03] MEDS: DOXAZOSIN MESYLATE 2 MG TAB PO SCH (09:21)
[2022-02-03] MEDS: METOPROLOL TARTRATE 25 MG TAB PO SCH ×2 (09:22→16:50)
[2022-02-03] MEDS: PANTOPRAZOLE SOD 40 MG TABEC PO SCH (09:22)
[2022-02-03] MEDS: AMLODIPINE BESYLATE 10 MG TAB PO SCH (09:23)
[2022-02-03] MEDS: ASPIRIN 325 MG TAB PO SCH (09:23)
[2022-02-03] MEDS: BACITRACIN ZINC 15 GM OINT TOP SCH (09:31)
[2022-02-03 12:31] VITALS: BP 124/72
[2022-02-03 16:21] VITALS: BP 145/69
[2022-02-03 17:06] LABS: ANION GAP 12.6 mmol/L (8-16); CALCIUM 7.9 mg/dL (8.4-10.2); CREATININE, SERUM 0.79 mg/dL (0.72-1.25)
[2022-02-03 17:19] LABS: POTASSIUM 2.6 mmol/L (3.5-5.1)
[2022-02-03 20:00] VITALS: BP 145/64
[2022-02-03] MEDS: ATORVASTATIN 10 MG TAB PO SCH (20:28)
[2022-02-04] VITALS (8 sets, daily range): BP systolic 122–159; BP diastolic 62–72
[2022-02-04] MEDS ORDERED: POTASSIUM CHLORIDE 20MEQ/100ML 200 ML IV ONE (02:00)
[2022-02-04] MEDS: SODIUM BICARBONATE 8.4% 50 ML in DEXTROSE 5% 1,000 ML IV SCH ×2 (06:07→16:33)
[2022-02-04] MEDS: INSULIN LISPRO 100 UNIT/1 ML 3ML VIAL SQ SCH ×4 (08:40→21:18)
[2022-02-04] MEDS: PANTOPRAZOLE SOD 40 MG TABEC PO SCH (08:44)
[2022-02-04] MEDS: ENOXAPARIN SOD INJ 40 MG/0.4 ML SYR SC SCH (08:44)
[2022-02-04] MEDS: AMLODIPINE BESYLATE 10 MG TAB PO SCH (08:45)
[2022-02-04] MEDS: DOXAZOSIN MESYLATE 2 MG TAB PO SCH (08:45)
[2022-02-04] MEDS: ASPIRIN 325 MG TAB PO SCH (08:45)
[2022-02-04] MEDS: RIVASTIGMINE PATCH 4.6MG/24 HOURS PATCH TD SCH (08:46)
[2022-02-04] MEDS: METOPROLOL TARTRATE 25 MG TAB PO SCH ×2 (08:46→16:24)
[2022-02-04] MEDS: BACITRACIN ZINC 15 GM OINT TOP SCH (08:56)
[2022-02-04] MEDS: ATORVASTATIN 10 MG TAB PO SCH (21:05)
[2022-02-05] VITALS (8 sets, daily range): BP systolic 133–151; BP diastolic 59–87
[2022-02-05] MEDS: SODIUM BICARBONATE 8.4% 50 ML in DEXTROSE 5% 1,000 ML IV SCH (05:07)
[2022-02-05] MEDS: DOXAZOSIN MESYLATE 2 MG TAB PO SCH (09:02)
[2022-02-05] MEDS: AMLODIPINE BESYLATE 10 MG TAB PO SCH (09:02)
[2022-02-05] MEDS: ASPIRIN 325 MG TAB PO SCH (09:02)
[2022-02-05] MEDS: ENOXAPARIN SOD INJ 40 MG/0.4 ML SYR SC SCH (09:03)
[2022-02-05] MEDS: METOPROLOL TARTRATE 25 MG TAB PO SCH ×2 (09:04→17:05)
[2022-02-05] MEDS: INSULIN LISPRO 100 UNIT/1 ML 3ML VIAL SQ SCH ×4 (09:05→20:21)
[2022-02-05] MEDS: PANTOPRAZOLE SOD 40 MG TABEC PO SCH (10:14)
[2022-02-05] MEDS: BACITRACIN ZINC 15 GM OINT TOP SCH (10:14)
[2022-02-05] MEDS: RIVASTIGMINE PATCH 4.6MG/24 HOURS PATCH TD SCH (10:14)
[2022-02-05] MEDS ORDERED: KCL 20 MEQ PACKET/ ORAL SOLN PO ONE (10:45)
[2022-02-05] MEDS ORDERED: POTASSIUM CHLORIDE 20MEQ/100ML 200 ML IV ONE (11:30)
[2022-02-05] MEDS: SODIUM CHLORIDE 0.9% 1000ML 1,000 ML IV SCH ×2 (11:55→23:20)
[2022-02-05] MEDS ORDERED: POTASSIUM CHLORIDE 20MEQ/15ML UDC PO ONE ×2 (12:00→14:00)
[2022-02-05 17:29] LABS: MAGNESIUM 1.3 MG/DL (1.3-2.1); POTASSIUM 3.2 mmol/L (3.5-5.1)
[2022-02-05] MEDS ORDERED: MAGNESIUM SULFATE 2GM/50ML 50 ML IV ONE (19:00)
[2022-02-05] MEDS: POTASSIUM CHLORIDE 20MEQ/100ML 100 ML IV SCH ×2 (20:27→23:20)
[2022-02-05] MEDS: ATORVASTATIN 10 MG TAB PO SCH (20:29)
[2022-02-06] VITALS (7 sets, daily range): BP systolic 105–149; BP diastolic 41–75
[2022-02-06 06:10] LABS: ANION GAP 15.4 mmol/L (8-16); CALCIUM 7.6 mg/dL (8.4-10.2); CREATININE, SERUM 0.78 mg/dL (0.72-1.25); POTASSIUM 3.4 mmol/L (3.5-5.1)
[2022-02-06] MEDS: INSULIN LISPRO 100 UNIT/1 ML 3ML VIAL SQ SCH ×4 (11:00→21:00)
[2022-02-06] MEDS: ASPIRIN 325 MG TAB PO SCH (11:01)
[2022-02-06] MEDS: METOPROLOL TARTRATE 25 MG TAB PO SCH ×2 (11:02→17:35)
[2022-02-06] MEDS: DOXAZOSIN MESYLATE 2 MG TAB PO SCH (11:02)
[2022-02-06] MEDS: MULTIVITAMINS/MINERALS TAB PO SCH (11:02)
[2022-02-06] MEDS: AMLODIPINE BESYLATE 10 MG TAB PO SCH (11:02)
[2022-02-06] MEDS: ENOXAPARIN SOD INJ 40 MG/0.4 ML SYR SC SCH (11:03)
[2022-02-06] MEDS: PANTOPRAZOLE SOD 40 MG TABEC PO SCH (11:03)
[2022-02-06] MEDS: RIVASTIGMINE PATCH 4.6MG/24 HOURS PATCH TD SCH (11:03)
[2022-02-06] MEDS: THIAMINE HCL 100 MG TAB PO SCH (11:12)
[2022-02-06] MEDS: SODIUM CHLORIDE 0.9% 1000ML 1,000 ML IV SCH (13:12)
[2022-02-06] MEDS ORDERED: POTASSIUM CHLORIDE 20MEQ/100ML 200 ML IV ONE (16:00)
[2022-02-06] MEDS ORDERED: MAGNESIUM SULFATE 2GM/50ML 50 ML IV ONE (16:30)
[2022-02-06] MEDS: ATORVASTATIN 10 MG TAB PO SCH (21:48)
[2022-02-07] VITALS (7 sets, daily range): BP systolic 118–165; BP diastolic 57–80
[2022-02-07] MEDS: SODIUM CHLORIDE 0.9% 1000ML 1,000 ML IV SCH ×2 (02:45→16:05)
[2022-02-07 06:38] LABS: ANION GAP 18.6 mmol/L (8-16); CALCIUM 7.9 mg/dL (8.4-10.2); POTASSIUM 3.6 mmol/L (3.5-5.1)
[2022-02-07 06:52] LABS: CREATININE, SERUM 0.84 mg/dL (0.72-1.25)
[2022-02-07] MEDS: INSULIN LISPRO 100 UNIT/1 ML 3ML VIAL SQ SCH ×4 (07:26→21:59)
[2022-02-07] MEDS: ASPIRIN 325 MG TAB PO SCH (10:38)
[2022-02-07] MEDS: THIAMINE HCL 100 MG TAB PO SCH (10:39)
[2022-02-07] MEDS: RIVASTIGMINE PATCH 4.6MG/24 HOURS PATCH TD SCH (10:39)
[2022-02-07] MEDS: MULTIVITAMINS/MINERALS TAB PO SCH (10:39)
[2022-02-07] MEDS: PANTOPRAZOLE SOD 40 MG TABEC PO SCH (10:39)
[2022-02-07] MEDS: AMLODIPINE BESYLATE 10 MG TAB PO SCH (10:39)
[2022-02-07] MEDS: DOXAZOSIN MESYLATE 2 MG TAB PO SCH (10:39)
[2022-02-07] MEDS: METOPROLOL TARTRATE 25 MG TAB PO SCH ×2 (10:39→16:25)
[2022-02-07] MEDS ORDERED: POTASSIUM CHLORIDE 20 MEQ TAB CR PO ONE (16:30)
[2022-02-07] MEDS: ATORVASTATIN 10 MG TAB PO SCH (22:03)
[2022-02-08] VITALS (9 sets, daily range): BP systolic 123–151; BP diastolic 59–73
[2022-02-08 06:24] LABS: POTASSIUM 3.2 mmol/L (3.5-5.1)
[2022-02-08] MEDS: INSULIN LISPRO 100 UNIT/1 ML 3ML VIAL SQ SCH ×4 (07:30→21:00)
[2022-02-08] MEDS: ASPIRIN 325 MG TAB PO SCH (10:21)
[2022-02-08] MEDS: PANTOPRAZOLE SOD 40 MG TABEC PO SCH (10:22)
[2022-02-08] MEDS: METOPROLOL TARTRATE 25 MG TAB PO SCH ×2 (10:22→17:45)
[2022-02-08] MEDS: THIAMINE HCL 100 MG TAB PO SCH (10:22)
[2022-02-08] MEDS: AMLODIPINE BESYLATE 10 MG TAB PO SCH (10:22)
[2022-02-08] MEDS: DOXAZOSIN MESYLATE 2 MG TAB PO SCH (10:22)
[2022-02-08] MEDS: RIVASTIGMINE PATCH 4.6MG/24 HOURS PATCH TD SCH (10:22)
[2022-02-08] MEDS: MULTIVITAMINS/MINERALS TAB PO SCH (10:22)
[2022-02-08] MEDS ORDERED: POTASSIUM CHLORIDE 20 MEQ TAB CR PO ONE (17:45)
[2022-02-08] MEDS: ATORVASTATIN 10 MG TAB PO SCH (20:58)
[2022-02-09] VITALS: BP 131/61
[2022-02-09 06:29] LABS: ANION GAP 12.8 mmol/L (8-16); CALCIUM 7.9 mg/dL (8.4-10.2); CREATININE, SERUM 0.87 mg/dL (0.72-1.25); POTASSIUM 3.8 mmol/L (3.5-5.1)
[2022-02-09] MEDS: INSULIN LISPRO 100 UNIT/1 ML 3ML VIAL SQ SCH ×4 (07:30→21:00)
[2022-02-09] MEDS: METOPROLOL TARTRATE 25 MG TAB PO SCH ×2 (09:00→17:00)
[2022-02-09] MEDS: PANTOPRAZOLE SOD 40 MG TABEC PO SCH (09:00)
[2022-02-09] MEDS: ASPIRIN 325 MG TAB PO SCH (09:00)
[2022-02-09] MEDS: AMLODIPINE BESYLATE 10 MG TAB PO SCH (09:00)
[2022-02-09] MEDS: DOXAZOSIN MESYLATE 2 MG TAB PO SCH (09:00)
[2022-02-09] MEDS: RIVASTIGMINE PATCH 4.6MG/24 HOURS PATCH TD SCH (09:00)
[2022-02-09] MEDS: MULTIVITAMINS/MINERALS TAB PO SCH (09:00)
[2022-02-09] MEDS: THIAMINE HCL 100 MG TAB PO SCH (09:00)
[2022-02-09 09:27] VITALS: BP 112/57
[2022-02-09 12:27] VITALS: BP 159/76
[2022-02-09] MEDS ORDERED: POVIDONE IODINE 0.05% 0.05 % ML PO ONE (12:43)
[2022-02-09] MEDS ORDERED: PROPOFOL IV EMULSION 10 MG/ML 20 ML VIAL ONE (12:43)
[2022-02-09 14:59] LABS: CLARITY,URINE CLEAR (CLEAR); COLOR,URINE YELLOW (YELLOW); KETONES,URINE 1+ (NEGATIVE); LEUKOCYTE ESTERASE ,URINE NEGATIVE (NEGATIVE); NITRITE,URINE NEGATIVE (NEGATIVE); PROTEIN,URINE DIPSTICK NEGATIVE (NEGATIVE)
[2022-02-09 15:00] LABS: URINE UROBILINOGEN 0.2 mg/dL (0.2 - 1)
[2022-02-09 15:10] LABS: RBC,URINE 21-50 /HPF (0-5)
[2022-02-09 15:11] LABS: BACTERIA,URINE MANY /HPF; EPITHELIAL CELLS,URINE FEW /LPF
[2022-02-09] MEDS ORDERED: POTASSIUM CHLORIDE 10MEQ/100ML 100 ML IV ONE (17:30)
[2022-02-09 19:04] VITALS: BP 121/76
[2022-02-09 19:44] VITALS: BP 121/76
[2022-02-09] MEDS: ATORVASTATIN 10 MG TAB PO SCH (22:00)
[2022-02-10] VITALS (7 sets, daily range): BP systolic 129–196; BP diastolic 68–91
[2022-02-10] MEDS: INSULIN LISPRO 100 UNIT/1 ML 3ML VIAL SQ SCH ×4 (07:30→22:33)
[2022-02-10] MEDS: PANTOPRAZOLE SOD 40 MG TABEC PO SCH (09:12)
[2022-02-10] MEDS: THIAMINE HCL 100 MG TAB PO SCH (09:12)
[2022-02-10] MEDS: METOPROLOL TARTRATE 25 MG TAB PO SCH ×2 (09:13→17:20)
[2022-02-10] MEDS: AMLODIPINE BESYLATE 10 MG TAB PO SCH (09:13)
[2022-02-10] MEDS: MULTIVITAMINS/MINERALS TAB PO SCH (09:17)
[2022-02-10] MEDS: DOXAZOSIN MESYLATE 2 MG TAB PO SCH (09:17)
[2022-02-10] MEDS: ASPIRIN 325 MG TAB PO SCH (09:18)
[2022-02-10] MEDS: RIVASTIGMINE PATCH 4.6MG/24 HOURS PATCH TD SCH (09:18)
[2022-02-10] MEDS: PANTOPRAZOLE SODIUM 40 MG SUSPDR.PKT PO SCH (10:33)
[2022-02-10] MEDS: ATORVASTATIN 10 MG TAB PO SCH (22:20)
[2022-02-10] MEDS: HYDRALAZINE HCL 20 MG/ML VIAL IV PRN (22:24)
[2022-02-11] VITALS (8 sets, daily range): BP systolic 110–183; BP diastolic 56–85
[2022-02-11] MEDS ORDERED: ACETAMINOPHEN 325 MG/10 ML UDC PEG PRN (03:00)
[2022-02-11] MEDS: LACTATED RINGER'S 1,000 ML INJ SCH ×2 (03:31→16:36)
[2022-02-11 06:20] LABS: CLARITY,URINE TURBID (CLEAR); COLOR,URINE YELLOW (YELLOW); KETONES,URINE 2+ (NEGATIVE); LEUKOCYTE ESTERASE ,URINE SMALL (NEGATIVE); NITRITE,URINE POSITIVE (NEGATIVE); PROTEIN,URINE DIPSTICK 2+ (NEGATIVE); URINE UROBILINOGEN 0.2 mg/dL (0.2 - 1)
[2022-02-11 06:21] LABS: BACTERIA,URINE MANY /HPF; EPITHELIAL CELLS,URINE FEW /LPF; WBC,URINE (MAN) >50 /HPF (0-5)
[2022-02-11] MEDS: PANTOPRAZOLE SODIUM 40 MG SUSPDR.PKT PO SCH (09:21)
[2022-02-11] MEDS: ASPIRIN 325 MG TAB PO SCH (09:21)
[2022-02-11] MEDS: THIAMINE HCL 100 MG TAB PO SCH (09:21)
[2022-02-11] MEDS: MULTIVITAMINS/MINERALS TAB PO SCH (09:22)
[2022-02-11] MEDS: RIVASTIGMINE PATCH 4.6MG/24 HOURS PATCH TD SCH (09:22)
[2022-02-11] MEDS: DOXAZOSIN MESYLATE 2 MG TAB PO SCH (09:22)
[2022-02-11] MEDS: AMLODIPINE BESYLATE 10 MG TAB PO SCH (09:22)
[2022-02-11] MEDS: METOPROLOL TARTRATE 25 MG TAB PO SCH ×2 (09:23→16:32)
[2022-02-11] MEDS: INSULIN LISPRO 100 UNIT/1 ML 3ML VIAL SQ SCH ×4 (09:24→21:18)
[2022-02-11 09:28] LABS: ANION GAP 16.9 mmol/L (8-16); CALCIUM 8.2 mg/dL (8.4-10.2); CREATININE, SERUM 1.12 mg/dL (0.72-1.25); POTASSIUM 3.9 mmol/L (3.5-5.1)
[2022-02-11] MEDS: ATORVASTATIN 10 MG TAB PO SCH (21:19)
[2022-02-12] VITALS (8 sets, daily range): BP systolic 110–131; BP diastolic 56–65
[2022-02-12] MEDS: LACTATED RINGER'S 1,000 ML INJ SCH ×2 (06:06→21:53)
[2022-02-12] MEDS: INSULIN LISPRO 100 UNIT/1 ML 3ML VIAL SQ SCH ×4 (07:30→21:55)
[2022-02-12] MEDS: ASPIRIN 325 MG TAB PO SCH (10:28)
[2022-02-12] MEDS: DOXAZOSIN MESYLATE 2 MG TAB PO SCH (10:29)
[2022-02-12] MEDS: METOPROLOL TARTRATE 25 MG TAB PO SCH ×2 (10:29→17:31)
[2022-02-12] MEDS: RIVASTIGMINE PATCH 4.6MG/24 HOURS PATCH TD SCH (10:29)
[2022-02-12] MEDS: MULTIVITAMINS/MINERALS TAB PO SCH (10:29)
[2022-02-12] MEDS: THIAMINE HCL 100 MG TAB PO SCH (10:29)
[2022-02-12] MEDS: AMLODIPINE BESYLATE 10 MG TAB PO SCH (10:29)
[2022-02-12] MEDS: PANTOPRAZOLE SODIUM 40 MG SUSPDR.PKT PO SCH (10:30)
[2022-02-12] MEDS: ATORVASTATIN 10 MG TAB PO SCH (21:50)
[2022-02-13 01:32] VITALS: BP 145/62
[2022-02-13 06:32] VITALS: BP 138/65
[2022-02-13 06:43] LABS: CALCIUM 7.8 mg/dL (8.4-10.2); CREATININE, SERUM 0.89 mg/dL (0.72-1.25)
[2022-02-13 07:53] VITALS: BP 145/70
[2022-02-13 08:42] VITALS: BP 145/70
[2022-02-13] MEDS: PANTOPRAZOLE SODIUM 40 MG SUSPDR.PKT PO SCH (08:56)
[2022-02-13] MEDS: THIAMINE HCL 100 MG TAB PO SCH (08:56)
[2022-02-13] MEDS: ASPIRIN 325 MG TAB PO SCH (08:57)
[2022-02-13] MEDS: AMLODIPINE BESYLATE 10 MG TAB PO SCH (08:57)
[2022-02-13] MEDS: MULTIVITAMINS/MINERALS TAB PO SCH (08:57)
[2022-02-13] MEDS: METOPROLOL TARTRATE 25 MG TAB PO SCH (08:57)
[2022-02-13] MEDS: RIVASTIGMINE PATCH 4.6MG/24 HOURS PATCH TD SCH (08:57)
[2022-02-13] MEDS: DOXAZOSIN MESYLATE 2 MG TAB PO SCH (08:58)
[2022-02-13] MEDS ORDERED: BALSAM PERU/CASTOR OIL 60 GM OINT...G. TP SCH (09:00)
[2022-02-13] MEDS: LACTATED RINGER'S 1,000 ML INJ SCH (09:14)
[2022-02-13] MEDS: INSULIN LISPRO 100 UNIT/1 ML 3ML VIAL SQ SCH (09:14)
== END 2022-02-13 10:05 | DRG 917 ==
LOC: ER 12:05 → ERHOLD 16:04 → MED/SURG3 01-27 01:03
PROVIDERS: ADMIT Internal Medicine; ATTEND Internal Medicine
PROC: 0DH63UZ Insertion of Feeding Device into Stomach, Percutaneous Approach (ICD-10-PCS; principal; 2022-02-09 15:27)
DX: T40.5X1A Poisoning by cocaine, accidental (unintentional), initial encounter (principal); G82.50 Quadriplegia, unspecified; G92.8 Other toxic encephalopathy; N39.0 Urinary tract infection, site not specified; N17.9 Acute kidney failure, unspecified; F03.90 Unspecified dementia, unspecified severity, without behavioral disturbance, psychotic disturbance, mood disturbance, and anxiety; E11.65 Type 2 diabetes mellitus with hyperglycemia; K20.90 Esophagitis, unspecified without bleeding; K29.70 Gastritis, unspecified, without bleeding; K44.9 Diaphragmatic hernia without obstruction or gangrene; I10 Essential (primary) hypertension; I25.10 Atherosclerotic heart disease of native coronary artery without angina pectoris; E78.5 Hyperlipidemia, unspecified; R32 Unspecified urinary incontinence; I69.398 Other sequelae of cerebral infarction; F10.10 Alcohol abuse, uncomplicated; I69.318 Other symptoms and signs involving cognitive functions following cerebral infarction; F15.10 Other stimulant abuse, uncomplicated; I69.365 Other paralytic syndrome following cerebral infarction, bilateral; M50.30 Other cervical disc degeneration, unspecified cervical region; E87.6 Hypokalemia; E83.42 Hypomagnesemia; M47.812 Spondylosis without myelopathy or radiculopathy, cervical region; T43.651A Poisoning by methamphetamines accidental (unintentional), initial encounter; Z95.1 Presence of aortocoronary bypass graft; Z20.822 Contact with and (suspected) exposure to COVID-19
CPT/HCPCS: 36415; 43246; 51700; 70450; 70551; 71045; 72141; 80048; 80053; 80061; 80307; 80320; 80329; 81001; 82140; 82550; 82948; 83036; 83605; 83735; 84132; 84443; 84484; 85025; 85610; 87040; 87086; 87186; 88304; 88305; 88312; 88342; 93005; 94799; 95819; 96360; 96361; 99251; 99284; J0360; J0692; J0696; J1650; J3411; J3475; J3480; J7030; J7070; J7121